=== PATIENT | female | born 1990 | race Asian ===

== ENCOUNTER → 2021-07-22 | Outpatient (CLI) | payer OTHER ==
[2021-07-23 05:07] LABS: RUBELLA AB IGG-REFLAB 4.65 index (Immune >0.99)
[2021-07-23 06:07] LABS: RUBEOLA (MEASLES) IGG >300.0 AU/mL (Immune >16.4)
[2021-07-24 08:07] LABS: QUANTIFERON, TB GOLD PLUS Negative (Negative)
== END | disposition home or self-care (01) ==
LOC: LABMN 12:36
PROVIDERS: ATTEND Family Medicine
DX: Z02.89 Encounter for other administrative examinations (principal); Z11.3 Encounter for screening for infections with a predominantly sexual mode of transmission; Z20.828 Contact with and (suspected) exposure to other viral communicable diseases; Z20.1 Contact with and (suspected) exposure to tuberculosis
CPT/HCPCS: 86480; 86592; 86706; 86735; 86762; 86765; 86787; 87340; 87491; 87591; 99283